=== PATIENT | female | born 1995 | race Caucasian/White ===

== ENCOUNTER 2018-02-16 15:44 | Emergency (ER) | payer SELFPAY ==
[2018-02-16 15:56] VITALS: BP 123/69
--- NOTE | 2018-02-16 16:45 | ER Document Report ---
ED General - General Chief Complaint: Skin Problem Stated Complaint: LIP PAIN Time Seen by Provider: 02/16/18 16:45 Mode of Arrival: Ambulatory Information source: Patient - HPI Notes: 23-year-old female presents today with complaints of a blister to the top of her lip that started last night. States she has been out in the sun for the last 3 days. Reports pain is 5 out of 10, throbbing achy. Patient denies any fevers or chills. States she felt a tingling sensation on her lip and then noticed that the blisters had developed. Menstrual period was February 12, denies . Tried ibuprofen with some relief. Denies fevers, chills, chest pain,palpitations, shortness of breath, dyspnea, nausea, vomiting, diarrhea, abdominal pain, hematuria,blurred vision, double vision, loss of vision, speech changes, LH, dizziness, syncope, headaches, wheezing, ST, URI, neck pain, weakness, bowel or bladder dysfunction, saddle anesthesia, numbness or tingling in bilateral upper or lower extremities equally, muscle paralysis, weakness in bilateral upper or lower extremities equally or rash. Denies IV drug use. - Related Data Allergies/Adverse Reactions: amoxicillin Allergy (Verified 02/16/18 15:47) Penicillins Allergy (Verified 02/16/18 15:47) Past Medical History - Social History Smoking Status: Unknown if Ever Smoked Family History: Reviewed & Not Pertinent Review of Systems - Review of Systems Constitutional: No symptoms reported EENT: No symptoms reported Cardiovascular: No symptoms reported Respiratory: No symptoms reported Gastrointestinal: No symptoms reported Genitourinary: No symptoms reported Female Genitourinary: No symptoms reported Musculoskeletal: No symptoms reported Skin: See HPI Hematologic/Lymphatic: No symptoms reported Neurological/Psychological: No symptoms reported Physical Exam - Vital signs Vitals: Temp Pulse Resp BP Pulse Ox 98.5 F 75 16 123/69 97 02/16/18 15:54 02/16/18 15:54 02/16/18 15:54 02/16/18 15:54 02/16/18 15:54 - Notes Notes: PHYSICAL EXAMINATION: GENERAL: Well-appearing, well-nourished and in no acute distress. HEAD: Atraumatic, normocephalic. EYES: Pupils equal round and reactive to light, extraocular movements intact, conjunctiva are normal. ENT: Nares patent, oropharynx clear without exudates. Moist mucous membranes. NECK: Normal range of motion, supple without lymphadenopathy LUNGS: Breath sounds clear to auscultation bilaterally and equal. No wheezes rales or rhonchi. HEART: Regular rate and rhythm without murmurs ABDOMEN: Soft, nontender, nondistended abdomen. No guarding, no rebound. No masses appreciated. Female : deferred Musculoskeletal: Normal range of motion, no pitting or edema. No cyanosis. NEUROLOGICAL: Cranial nerves grossly intact. Normal speech, normal gait. Normal sensory, motor exams PSYCH: Normal mood, normal affect. SKIN: Warm, Dry, normal turgor, no rashes or lesions noted. Noted vesicular lesions to right upper lip. No surrounding satellite lesions, linear markings, induration or fluctuance noted. No drainage from blisters. 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 Discussed with patient that she likely will have a recurrence however will not be as severe, when she started to feel the tingling to call her doctor to get a prescription for antiviral. Discussed that not to share any chopsticks, utensils while she has any outbreak and she will transmit this disease to other people. Advised to apply cool compresses to site. Follow -up with her primary care within 1-2 days. Take [id number] ibuprofen and Tylenol as needed for pain. I have reevaluated this patient multiple times and no significant life threatening changes, no signs of toxicity, sepsis or peritonitis are noted. The patient and I have discussed the diagnosis and risks , and we agree with discharging home and close follow-up. We also discussed returning to the Emergency Department immediately if new or worsening symptoms occur with the understanding that symptoms and presentations can change. At this time will discharge with return precautions and follow-up recommendations. Verbal discharge instructions given a the bedside and opportunity for questions given. We have discussed the symptoms which are most concerning (e.g. , saddle anesthesia, urinary or bowel incontinence or retention, changing or worsening pain) that necessitate immediate return. Medication warnings reviewed. Patient is in agreement with this plan and has verbalized understanding of return precautions and the need for primary care follow-up in the next 24-72 hours. Patient verbalized understanding of plan of care and agree with plan of care. - Vital Signs Vital signs: Temp Pulse Resp BP Pulse Ox 98.5 F 75 16 123/69 97 02/16/18 15:54 02/16/18 15:54 02/16/18 15:54 02/16/18 15:54 02/16/18 15:54 Discharge - Discharge Clinical Impression: Herpes simplex Condition: Good Disposition: HOME, SELF-CARE Additional Instructions: Herpes Simplex You have been diagnosed as having a herpes virus infection. The herpes ( "cold sore") virus usually infects the areas around the mouth. However, it can cause infection on any skin surface. It's particularly dangerous if infection occurs in the eye. On the initial infection, herpes blisters erupt over a large area. There is usually fever and aching. This infection takes about 14 days to resolve. After the initial infection, herpes sores can erupt on small areas (usually the lips), then heal in about a week. Sunburn, fever, local irritation, or even emotions can provoke a "fever blister" attack of herpes. Initial herpes infections can be treated with medication if severe. Subsequent attacks are usually given only local care to reduce symptoms; however , the physician may decide to prescribe anti-viral medication if your case warrants it. Call the doctor if you are worsening in any way. Return immediately for any new or worsening symptoms. Follow up with primary care provider, call tomorrow to make followup appointment. Prescriptions: Acyclovir [Zovirax] 400 mg PO 5XD #35 tablet Prednisone [Deltasone 20 mg Tablet] 3 tab PO DAILY 5 Days #15 tablet Sulfamethoxazole/Trimethoprim [Bactrim Ds Tablet] 1 each PO BID #10 tablet Forms: Return to Work Referrals: RENAE ROWE MD [ACTIVE STAFF] - Follow up as needed
== END 2018-02-16 17:22 | disposition home or self-care (01) ==
LOC: ER 15:44
DX: B00.9 Herpesviral infection, unspecified (principal); Z88.0 Allergy status to penicillin
CPT/HCPCS: 99283

== ENCOUNTER 2018-03-31 18:10 | Emergency (ER) | payer SELFPAY ==
[2018-03-31 18:18] VITALS: BP 126/83
--- NOTE | 2018-03-31 18:47 | ER Document Report ---
HPI - HPI Patient complains to provider of: Swollen ankles Onset: Other - March 12 Onset/Duration: Waxing and waning Pain Level: 3 Context: 23-year-old obese female complaining of bilateral ankle pain and swelling that started while walking 12 hours at [employer] on March 12. Seem to be a little better until she stopped had to stand on her feet at work. No history of gout. No history of renal disease diabetes or hypertension. No chest pain or shortness of breath. No injury. Associated Symptoms: None Exacerbated by: Standing, Walking Relieved by: Denies Similar symptoms previously: No Recently seen / treated by doctor: No - ROS ROS below otherwise negative: Yes Systems Reviewed and Negative: Yes All other systems reviewed and negative Past Medical History - General Information source: Patient - Social History Smoking Status: Never Smoker Frequency of alcohol use: None Drug Abuse: None Occupation: System Software Programmer Lives with: Family Family History: Reviewed & Not Pertinent - Medical History Medical History: Negative Renal/ Medical History: Denies: Hx Peritoneal Dialysis Surgical Hx: Negative Vertical Provider Document - CONSTITUTIONAL Agree With Documented VS: Yes - INFECTION CONTROL TRAVEL OUTSIDE OF THE [place] IN LAST 30 DAYS: No - NECK Neck: Supple - RESPIRATORY Respiratory: Breath Sounds Normal, No Respiratory Distress - CARDIOVASCULAR Cardiovascular: Regular Rate, Regular Rhythm - MUSCULOSKELETAL/EXTREMETIES Musculoskeletal/Extremeties: MAEW, FROM, Tender - Bilateral ankles inferior to the lateral malleolus, Edema - Ankles only - NEURO Level of Consciousness: Awake Motor/Sensory: No Motor Deficit, No Sensory Deficit - DERM Integumentary: Warm, Dry, No Rash Course - Re-evaluation Re-evalutation: 03/31/18 20:41 Labs and x-ray are normal. I will treat for ankle pain tendinitis and referred to orthopedics - Vital Signs Vital signs: Temp Pulse Resp BP Pulse Ox 98.5 F 89 16 126/83 H 99 03/31/18 18:16 03/31/18 18:16 03/31/18 18:16 03/31/18 18:16 03/31/18 18:16 - Laboratory Result Diagrams: 03/31/18 19:36 03/31/18 19:36 Discharge - Discharge Clinical Impression: Bilateral ankle pain and swelling Condition: Good Disposition: HOME, SELF-CARE Instructions: Arthralgia ([facility]), Edema, Peripheral ([facility]), Ibuprofen (General) ( [facility]), Tendonitis ([facility]) Additional Instructions: Get some ankle compressive stockings while you are at work See orthopedics for follow-up Elevate her feet and ankles above your heart Ibuprofen for inflammation and pain Return to the emergency room if worse Forms: Return to Work
[2018-03-31] MEDS ORDERED: IBUPROFEN 800 MG TABLET PO ONE (19:12)
--- NOTE | 2018-03-31 19:46 | RADIOLOGY REPORT (SQ) ---
EXAM DESCRIPTION: ANKLE BILATERAL 3 VIEWS MIN COMPLETED DATE/TIME: 03/31/2018 7:39 pm REASON FOR STUDY: billateral ankle pain swelling COMPARISON: None. NUMBER OF VIEWS: Three views. TECHNIQUE: AP, lateral, and oblique without weight bearing radiographic images acquired of the right and left ankle. LIMITATIONS: None. FINDINGS: MINERALIZATION: Normal. BONES: No acute fracture or dislocation. No worrisome bone lesions. No significant osteophytes. JOINTS: No effusions. SOFT TISSUES: No soft tissue swelling. No foreign body. OTHER: No other significant finding. IMPRESSION: NEGATIVE STUDY OF THE RIGHT AND LEFT ANKLES. NO EXPLANATION FOR PAIN. TECHNICAL DOCUMENTATION: JOB ID: [id number] [employer]- All Rights Reserved Reading location - IP/workstation name: [email or web address]
[2018-03-31 19:56] LABS: ABSOLUTE EOSINOPHILS # (AUTO) 0.3 10^3/uL (0.0-0.6); ABSOLUTE LYMPHOCYTES (AUTO) 1.7 10^3/uL (0.5-4.7); ABSOLUTE MONOCYTES (AUTO) 0.6 10^3/uL (0.1-1.4); ABSOLUTE NEUT (AUTO) 4.3 10^3/uL (1.7-8.2); BASOPHILS % (AUTO) 0.5 % (0-2); EOSINOPHILS % (AUTO) 4.4 % (0-6); HEMATOCRIT 38.7 % (36.0-47.0); HEMOGLOBIN 13.5 g/dL (12.0-15.5); LYMPHOCYTES % (AUTO) 24.7 % (13-45); MEAN CORPUSCULAR HEMOGLOBIN 30.6 pg (27.0-33.4); MEAN CORPUSCULAR HGB CONC 34.9 g/dL (32.0-36.0); MEAN CORPUSCULAR VOLUME 88 fl (80-97); MONOCYTES % (AUTO) 8.6 % (3-13); PLATELET COUNT 270 10^3/uL (150-450); RED BLOOD COUNT 4.41 10^6/uL (3.72-5.28); RED CELL DISTRIBUTION WIDTH 12.9 % (11.5-14.0); SEGMENTED NEUTROPHILS % (AUTO) 61.8 % (42-78); TOTAL CELLS COUNTED % (AUTO) 100 %
[2018-03-31 20:18] LABS: ALANINE AMINOTRANSFERASE 18 U/L (9-52); ALBUMIN 4.3 g/dL (3.5-5.0); ALKALINE PHOSPHATASE 63 U/L (38-126); ANION GAP 13 (5-19); ASPARTATE AMINO TRANSFERASE 25 U/L (14-36); BILIRUBIN,DIRECT 0.4 mg/dL (0.0-0.4); BILIRUBIN,TOTAL 0.5 mg/dL (0.2-1.3); BLOOD UREA NITROGEN 10 mg/dL (7-20); CALCIUM 9.4 mg/dL (8.4-10.2); CARBON DIOXIDE 24 mmol/L (22-30); CHLORIDE 107 mmol/L (98-107); GLUCOSE 60 mg/dL (75-110); POTASSIUM 4.2 mmol/L (3.6-5.0); SODIUM 144.1 mmol/L (137-145); TOTAL PROTEIN 7.1 g/dL (6.3-8.2); URIC ACID 5.8 mg/dL (2.5-6.2)
== END 2018-03-31 20:55 | disposition home or self-care (01) ==
LOC: ER 18:10
DX: M25.472 Effusion, left ankle (principal); M25.471 Effusion, right ankle; M25.572 Pain in left ankle and joints of left foot; M25.571 Pain in right ankle and joints of right foot; E66.9 Obesity, unspecified
CPT/HCPCS: 36415; 80053; 84550; 85025; 99283

== ENCOUNTER 2018-05-09 14:32 | Emergency (ER) | payer SELFPAY ==
[2018-05-09 14:41] VITALS: BP 130/77
--- NOTE | 2018-05-09 15:58 | ER Document Report ---
ED General - General Chief Complaint: Foot Pain Stated Complaint: FOOT PAIN Time Seen by Provider: 05/09/18 15:37 TRAVEL OUTSIDE OF THE [place] IN LAST 30 DAYS: No - HPI Patient complains to provider of: Bilateral ankle pain for pain Notes: Patient coming in today for bilateral ankle pain foot pain. Patient's been seen recently for the symptoms at the end of March beginning of April. At that time patient was encouraged to use compression stockings for swelling and follow -up. Patient states that she was never given information for follow-up however was able to find she was given Dr. Sarkar information on discharge papers upon review of the chart. Patient states that she has not gotten any compression stockings but has been wrapping her legs with Lucas bandages. Patient otherwise states she has been taking anti-inflammatory medication Tylenol for pain with no relief. Patient has not followed up with any other care since his last visit according to the patient. Denies any injuries denies any fever chills nausea vomiting diarrhea. Patient is seen walking to room 35 and flip-flops prior to my evaluation with a normal gait. Patient states most pain is in the inside of her ankles achy and sharp shooting going up her legs. - Related Data Allergies/Adverse Reactions: amoxicillin Allergy (Verified 03/31/18 18:15) Penicillins Allergy (Verified 03/31/18 18:15) Past Medical History - Social History Smoking Status: Never Smoker Chew tobacco use (# tins/day): No Frequency of alcohol use: Occasional Drug Abuse: None Family History: Reviewed & Not Pertinent Patient has suicidal ideation: No Patient has homicidal ideation: No Renal/ Medical History: Denies: Hx Peritoneal Dialysis Psychiatric Medical History: Reports: Hx Attention Deficit Hyperactivity Disorder Past Surgical History: Reports: Hx Oral Surgery - wisdom teeth Review of Systems - Review of Systems Constitutional: No symptoms reported EENT: No symptoms reported Cardiovascular: No symptoms reported Respiratory: No symptoms reported Gastrointestinal: No symptoms reported Genitourinary: No symptoms reported Female Genitourinary: No symptoms reported Musculoskeletal: Other - Bilateral ankle bilateral foot pain Skin: No symptoms reported Hematologic/Lymphatic: No symptoms reported Neurological/Psychological: No symptoms reported Physical Exam - Vital signs Vitals: Temp Pulse Resp BP Pulse Ox 97.7 F 91 14 130/77 H 97 05/09/18 14:40 05/09/18 14:40 05/09/18 14:40 05/09/18 14:40 05/09/18 14:40 Interpretation: Normal - General General appearance: Appears well, Alert - HEENT Head: Normocephalic, Atraumatic Eyes: Normal Pupils: PERRL - Respiratory Respiratory status: No respiratory distress Chest status: Nontender Breath sounds: Normal Chest palpation: Normal - Cardiovascular Rhythm: Regular Heart sounds: Normal auscultation Murmur: No - Abdominal Inspection: Normal Distension: No distension Bowel sounds: Normal Tenderness: Nontender Organomegaly: No organomegaly - Back Back: Normal, Nontender - Extremities General upper extremity: Normal inspection, Nontender, Normal color, Normal ROM , Normal temperature General lower extremity: Normal inspection, Nontender, Normal color, Normal ROM , Normal temperature, Normal weight bearing, Other - Examination palpation reveals no edema no tenderness to palpation to the lateral malleolus medial malleolus of both ankles. Babinski is intact there is no pain on pressing of the heels/plantar fascia consistent with plantar fasciitis or pain from heel spurs.. No: Gretel's sign - Neurological Neuro grossly intact: Yes Cognition: Normal Orientation: AAOx4 Crow Coma Scale Eye Opening: Spontaneous Crow Coma Scale Verbal: Oriented [place] Coma Scale Motor: Obeys Commands [place] Coma Scale Total: 15 Speech: Normal Motor strength normal: LUE, RUE, LLE, RLE Sensory: Normal - Psychological Associated symptoms: Normal affect, Normal mood - Skin Skin Temperature: Warm Skin Moisture: Dry Skin Color: Normal Course - Re-evaluation Re-evalutation: 05/09/18 22:47 Reviewed patient's previous visit with lab work performed and x-rays performed showing no acute abnormality. Patient has a history of trauma cannot elicit any pain on physical examination. To the patient at this time I do not have any testing here in ER they can give her answer why she is having bilateral foot and ankle pain. I explained to the patient that I would highly recommend she follow-up with a supervisor corduroy cutting or the orthopedic doctor provided that her last visit continue to elevate her legs at night and to continue to use the Lucas bandages or tries compression stockings. Also recommended the patient wear supportive shoes and not flip-flops patient did indicate that she does not have any insurance at this time. I recommend we get her social work involved to assist the patient in further follow-up. Patient and ask how she is supposed to fit seeing a supervisor corduroy cutting or a property specialist into her busy schedule with school work. I explained to the patient that sometimes "life happens and that she would need to figure it out for herself" at this time she has no emergent criteria causing her issues patient then becomes irate and leaves before receiving her discharge papers. 05/09/18 22:49 - Vital Signs Vital signs: Temp Pulse Resp BP Pulse Ox 97.7 F 91 14 130/77 H 97 05/09/18 14:40 05/09/18 14:40 05/09/18 14:40 05/09/18 14:40 05/09/18 14:40 Discharge - Discharge Clinical Impression: Bilateral foot pain Bilateral ankle pain Qualifiers: Chronicity: chronic Qualified Code(s): M25.571 - Pain in right ankle and joints of right foot; M25.572 - Pain in left ankle and joints of left foot; M25.572 - Pain in left ankle and joints of left foot; G89.29 - Other chronic pain; G89.29 - Other chronic pain Condition: Good Disposition: HOME, SELF-CARE Instructions: Arthralgia ([facility]) Additional Instructions: Recommend taking Tylenol Motrin for your pain. Elevate your legs use compression stockings or Lucas bandages as indicated your last visit. Would recommend follow-up with a supervisor corduroy cutting provided or the orthopedic doctor provided. Your examination today reveals no emergent pathology. Will have our social work nurse contact you for establishment of further follow-up Referrals: ZAYNAB HANSON MD [ACTIVE STAFF] - Follow up as needed ARACELIS ANDRADE DPM [ACTIVE STAFF] - Follow up as needed
== END 2018-05-09 16:07 | disposition home or self-care (01) ==
LOC: ER 14:32
DX: M25.571 Pain in right ankle and joints of right foot (principal); M25.572 Pain in left ankle and joints of left foot; M79.671 Pain in right foot; M79.672 Pain in left foot; G89.29 Other chronic pain; Z79.899 Other long term (current) drug therapy
CPT/HCPCS: 99283